=== PATIENT | female | born 1975 | race American Indian/Alaskan Native ===

== ENCOUNTER 2018-08-17 12:45 | Outpatient (CLI) | payer BC ==
--- NOTE | 2018-08-17 15:51 | Mammography Report ---
DIGITAL SCREENING MAMMOGRAM WITH CAD, 08/17/2018 INDICATION: Routine screening mammography. TECHNIQUE: Digital bilateral 2D mammography was obtained in the craniocaudal and mediolateral obliq ue projections. This examination was interpreted with the benefit of Computer-Aided Detection analysi s. COMPARISON: None. This is a baseline mammogram. FINDINGS: Breast Density: Heterogeneously dense, which may obscure small masses. Left asymmetries require addit ional imaging. No suspicious calcifications or architectural distortion in either breast. The right breast is negati ve. IMPRESSION: Left asymmetries requiring additional imaging. Recommend recall for left spot compression views and left breast ultrasound if needed. BI-RADS Category 0: Incomplete. Needs additional imaging . Signer Name: Umer Muonz MD Signed: 08/17/2018 4:46 PM Workstation Name: [id number]
== END 2018-08-17 12:46 | disposition home or self-care (01) ==
LOC: SPVWC 12:45
PROVIDERS: ATTEND Obstetrics & Gynecology
DX: Z12.31 Encounter for screening mammogram for malignant neoplasm of breast (principal)
CPT/HCPCS: 77067

== ENCOUNTER 2018-12-29 09:07 | Inpatient (IN) | payer BC ==
--- NOTE | 2018-12-25 11:28 | Anesthesia Consultation ---
Anesthesia Consult and Med Hx Date of service: 12/29/18 - Airway Anesthetic Teeth Evaluation: Good ROM Head & Neck: Adequate Mental/Hyoid Distance: Adequate Mallampati Class: Class II Intubation Access Assessment: Good - Pre-Operative Health Status ASA Pre-Surgery Classification: ASA2 Proposed Anesthetic Plan: General Nerve Block: TAP if needed post-op - Central Nervous System Hx Psychiatric Problems: No - Other Systems Hx Alcohol Use: Yes (Occas) Hx Cancer: No
[2018-12-25 11:56] LABS: Hematocrit 24.8 % (30.3-42.9); Hemoglobin 7.4 gm/dl (10.1-14.3); Mean Corpuscular Volume 60 fl (79-97); Red Blood Count 4.15 M/mm3 (3.65-5.03)
[2018-12-25 11:57] LABS: Mean Corpuscular HGB Conc 30 % (30-34); Platelet Count 286 K/mm3 (140-440); Red Cell Distribution Width 19.2 % (13.2-15.2)
[2018-12-25 13:40] LABS: Anisocytosis 1+; Basophils % (Manual) 0 % (0.0-1.8); Total Cells Counted 100
[2018-12-25 13:41] LABS: Hypochromasia 3+; Ovalocytes Few; Platelet Estimate Consistent w Auto; Target Cells Few
--- NOTE | 2018-12-29 08:02 | History and Physical Report ---
History of Present Illness Date of examination: 12/25/18 Date of admission: 12/29/18 Chief complaint: heavy vaginal bleeding; fibroids History of present illness: Visit Type: Pre-Op Referring Provider: CARLEE Primary Provider: Hanna Larson MD CC: pre op. History of Present Illness: pt presents for pre op visit: LAVH w/ bilateral salpingectomy............ .........................................................Dahlia Godinez December 25, 2018 10:10 AM Pt here for pre op for LAVH possible MARU with BS. All risk/benefits/alternatives were d/w pt and questions were addressed and answered. Pt having surgery due to menorrhagia leading to anemia for large uterine fibroids. Vital Signs: Patient Profile: 43 Years Old Female LMP: 12/07/2018 Height: 69.5 inches (176.53 cm) Weight: 232 pounds BMI: 33.77 BP sittin / 74 (left arm) Menstrual History: LMP (date): 12/07/2018 Current Method of Contraception: OCP Date of Last Mammogram: 08/17/2018 Date of Last Pap Smear: 01/07/2018 Past History : 0 Term Births: 0 Premature Births: 0 Living Children: 0 Para: 0 Mult. Births: 0 Prev : 0 Prev. attempt? none Aborta: 0 Elect. Ab: 0 Spont. Ab: 0 Ectopics: 0 BOX SPINNER History Uterine Surgery (not C/S): negative Operations: Lumpectomy Hospitalizations: negative Anesthesia Complications: negative Abnormal PAP: positive; s/p LEEP Uterine Anomaly: negative NATHALIA Exposure: negative Infertility: negative Infection History HIV Risk Eval: no Personal hx. of genital herpes: no Partner hx. of genital herpes: no Hx of STD: HPV Active Medications (reviewed today): MULTI VITAMINS () NORTREL 0.5/35 (28) 0.5-35 MG-MCG ORAL TABLET (NORETHINDRONE-ETH ESTRADIOL) one po q day Current Allergies (reviewed today): No known allergies Past Medical History: Reviewed history from 04/06/2010 and no changes required: Negative Past Medical History Past Surgical History: Reviewed history from 06/20/2011 and no changes required: Lumpectomy Family History Summary: Reviewed history Last on 12/10/2016 and no changes required:12/29/2018 General Comments - FH: Family History Breast Cancer Family History of Hypertension Family History of Diabetes Family History of Colon Cancer Sickle Cell Dz Social History: 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-may be adopting sister's children no e/t/d Risk Factors: Smoked Tobacco Use: Never smoker Smokeless Tobacco Use: Never Drug use: no HIV high-risk behavior: no Alcohol use: yes Type: occ Exercise: yes Times per week: occ Seatbelt use: 100 % Mammogram History: Date of Last Mammogram: 08/17/2018 PAP Smear History: Date of Last PAP Smear: 01/07/2018 [[facility] [Labs In-House] Physical Exam Appearance: well developed, well nourished, no acute distress Other Exams Lungs: no rales, rhonchi, or wheezes Heart: S1, S2, no murmur, rub, or gallop Abdomen: soft, non-tender, no masses, bowel sounds normal Extremities: normal alignment, no joint enlargement, crepitus, masses or tenderness; normal tone and strength Genitourinary Exam Comments: deferred until EUA [[facility]] Medications Added to Medication List This Visit: 1) Multi Vitamins Past History Past Medical History: other (anemia) Past Surgical History: no surgical history BOX SPINNER History: denies: abnormal PAP smear Family/Genetic History: other (see hpi) Social history: no significant social history, single Medications and Allergies Allergies Allergy/AdvReac Type Severity Reaction Status Date / Time No Known Allergies Allergy Unverified 12/24/18 16:02 Home Medications Medication Instructions Recorded Confirmed Last Taken Type Multivitamin [Multiple Vitamins] 1 each PO DAILY 12/24/18 12/24/18 Unknown History Norethindrone-Ethinyl Estrad 1 tab PO DAILY 12/24/18 12/24/18 12/22/18 History [Nortrel 0.5-35-28 Tablet] Active Meds: Active Medications Cefazolin Sodium (Ancef/Sterile Water 2 Gm/20 Ml) 2 gm in 20 mls @ 80 mls/hr IV PREOP NR; Protocol Stop: 12/29/18 23:59 Sodium Chloride (Nacl 0.9% 500 Ml) 500 mls @ 0 mls/hr IV ONCE NR Stop: 12/29/18 23:59 Review of Systems All systems: negative - Vital Signs Vital signs: Vital Signs Temp Pulse Resp BP Pulse Ox 98.9 F 78 18 144/80 100 12/25/18 10:55 12/25/18 10:55 12/25/18 10:55 12/25/18 10:55 12/25/18 10:55 Temp Pulse Resp BP Pulse Ox 98.9 F 78 18 144/80 100 12/25/18 10:55 12/25/18 10:55 12/25/18 10:55 12/25/18 10:55 12/25/18 10:55 - Physical Exam Cardiovascular: Normal S1, Normal S2 Lungs: Positive: Clear to auscultation, Normal air movement Abdomen: Positive: normal appearance, soft. Negative: distention, tenderness, guarding Genitourinary (Female): Positive: other (deferred unitl EUA) Extremities: Positive: normal. Negative: tenderness, edema Results Result Diagrams: 12/25/18 10:51 All other labs normal. Assessment and Plan - Patient Problems (1) Fibroid uterus Status: Acute Qualifiers: Uterine leiomyoma location: intramural Qualified Code(s): D25.1 - Intramural leiomyoma of uterus Plan to address problem: -pt desires definitive therapy with total hysterectomy. I d/w that LAVH would be planned but due to size of uterus or fibroids, a MARU would need to be performed. All risk, benefits, and alternatives were d/w pt. Consents were signed and given to pt to present to pre op. -d/w benefits of BS and she desires to have this at time of hysterectomy as well. (2) Menorrhagia with regular cycle Status: Acute Plan to address problem: -pt desires definitive therapy with total hysterectomy. I d/w that LAVH would be planned but due to size of uterus or fibroids, a MARU would need to be performed. All risk, benefits, and alternatives were d/w pt. Consents were signed and given to pt to present to pre op. -d/w benefits of BS and she desires to have this at time of hysterectomy as well. (3) Anemia Status: Acute Qualifiers: Anemia type: iron deficiency Iron deficiency anemia type: chronic blood loss Qualified Code(s): D50.0 - Iron deficiency anemia secondary to blood loss (chronic) Plan to address problem: -pt desires definitive therapy with total hysterectomy. I d/w that LAVH would be planned but due to size of uterus or fibroids, a MARU would need to be performed. All risk, benefits, and alternatives were d/w pt. Consents were signed and given to pt to present to pre op. -d/w benefits of BS and she desires to have this at time of hysterectomy as well. -two units of blood to be given prior to/during surgery. Will closely follow post op. Cell saver also ordered.
[~2018-12-29 09:07] MED LIST: BUPIVACAINE/PF (0.5%) 5 MG/1 ML 30 ML VIAL INFILTRATI ONE; SODIUM CHLORIDE 0.9% 100 ML ONE; SODIUM CHLORIDE 0.9% 500 ML 500 ML IV NR; VASOPRESSIN 20 UNIT/1 ML INJ ONE; ceFAZolin/Water 2 GM/20 ML 2 GM/20 ML SYRINGE IV NR
[2018-12-29] MEDS ORDERED: HYDROmorphone 1 MG/1 ML INJ IV PRN (09:09)
--- NOTE | 2018-12-29 09:10 | Anesthesia Day of Surgery ---
Anesthesia Day of Surgery - Day of Surgery Patient Examined: Yes Patient H&P Reviewed: Yes Patient is NPO: Yes
[2018-12-29] MEDS ORDERED: BACTERIOSTATIC SODIUM CHLORIDE 0.9% 30 ML VIAL INFILTRATI ONE (09:26)
[2018-12-29] MEDS: LACTATED RINGERS 1,000 ML IV SCH ×2 (09:30→16:54)
[2018-12-29] MEDS ORDERED: GABAPENTIN 300 MG CAP PO NR (10:00)
[2018-12-29] MEDS ORDERED: MIDAZOLAM 2 MG/2 ML INJ IV NR (10:00)
[2018-12-29] MEDS ORDERED: CELECOXIB 200 MG CAP PO NR (10:00)
[2018-12-29] MEDS ORDERED: ROCURONIUM 50 MG/5 ML INJ IV ONE (10:26)
[2018-12-29] MEDS ORDERED: LIDOCAINE MPF (2%) 20 MG/1 ML VIAL 5 ML ONE (10:26)
[2018-12-29] MEDS ORDERED: MIDAZOLAM 2 MG/2 ML INJ ONE (10:26)
[2018-12-29] MEDS ORDERED: fentaNYL 100 MCG/2 ML INJ ONE (10:26)
[2018-12-29] MEDS ORDERED: PROPOFOL 200 MG/20 ML VIAL IV ONE (10:27)
[2018-12-29] MEDS ORDERED: ONDANSETRON 4 MG/2 ML INJ ONE (13:11)
[2018-12-29] MEDS ORDERED: METOCLOPRAMIDE 10 MG/2 ML INJ ONE (13:11)
[2018-12-29] MEDS ORDERED: HYDROmorphone 1 MG/1 ML INJ ONE (13:11)
[2018-12-29] MEDS ORDERED: dexAMETHasone 20 MG/5 ML VIAL ONE (13:11)
[2018-12-29] MEDS ORDERED: dexAMETHasone 4 MG/ML VIAL ONE (14:34)
[2018-12-29] MEDS ORDERED: LIDOCAINE (1%) 10 MG/1 ML VIAL 20 ML MDV ONE (14:34)
[2018-12-29] MEDS ORDERED: cloNIDine/PF 1,000 MCG/10 ML VIAL EP ONE (14:34)
[2018-12-29] MEDS ORDERED: BUPIVACAINE-EPINEPHRINE/PF 0.25%-1:200,000 (30 ML) VIAL INFILTRATI ONE (14:34)
[2018-12-29] MEDS ORDERED: BUPIVACAINE/PF (0.5%) 5 MG/1 ML 30 ML VIAL INFILTRATI ONE (14:40)
[2018-12-29] MEDS ORDERED: GLYCOPYRROLATE 0.4 MG/2 ML INJ ONE (14:41)
[2018-12-29] MEDS ORDERED: NEOSTIGMINE 10MG/10 ML INJ MDV ONE (14:41)
[2018-12-29] MEDS ORDERED: KETOROLAC 30 MG/1 ML INJ ONE (14:41)
[2018-12-29] MEDS ORDERED: LACTATED RINGERS 1,000 ML ONE (15:02)
--- NOTE | 2018-12-29 15:12 | Operative Report ---
Operative Report Operative Report: Date of procedure: 12/29/2018 Pre-operative diagnosis: Leiomyomatous uterus Anemia Failed medical therapy Post-operative diagnosis: Same Procedure name(s): 1. Exploratory laparotomy 2. Total abdominal hysterectomy 3. Diagnostic laparoscopy 4. Bilateral salpingectomy Surgeon: Hanna Larson M.D. Media Relations Specialist: Dr. Sonia Trevino Anesthesia: Gen. endotracheal anesthesia EBL: 100 mL Urine output: 150 mL of clear urine out at the end of the procedure Fluids: 1.5 L Findings: Approximately 14 week size uterus multiple fibroids noted Grossly normal fallopian tubes and ovaries bilaterally Very little descent of uterus on vaginal exam Indications: Patient with long history of uterine fibroids and menometrorrhagia subsequently leading to anemia desired to have definitive therapy via hysterectomy. All risks benefits and alternatives were discussed the patient. Consents were signed and placed on chart. Risk and benefits of removal of fallopian tubes were also discussed with the patient. Patient desired removal of fallopian tubes as well. Procedure: Patient was taken to the operating room wishes placed under general endotracheal anesthesia. She was then prepped and draped in normal sterile fashion in dorsal lithotomy position with legs in Silivano stirrups. Sterile spe culum was placed inside of the vagina. Anterior lip of the cervix was grasped with grasper. Uterus was sounded. Uterine manipulator was placed. Attention fascia Tinsley catheter was placed at this time. Attention was then turned to the umbilicus in which a supraumbilical 5 mm incision was made. The scope was placed under direct visualization. Uterus was noted to be extremely large. Decision was made at that time to proceed with total abdominal hysterectomy. A low transverse skin incision was made and carried down to the underlying layer of fascia with both the scalpel and the Bovie. Incision was made with the scalpel and carried down to the underlying layer of fascia with the scalpel and the Bovie. The fascia was incised in the midline and this incision was extended superiorly and inferiorly. The peritoneum was entered into sharply and this incision was extended superiorly and inferiorly. The O'Constantine-O'Otero retractor was then placed. The bowel was packed away with moist wet laps. The uterus was exteriorized. Exploratory laparotomy was performed with the above- stated findings. The attention was turned to the round ligaments bilaterally. Attention was turned to the right fallopian tube which was cauterized and transected and removed and passed off to pathology. The round ligaments were grasped with the Kimberly clamps transected and suture ligated with excellent hemostasis noted. The anterior leaf of the broad ligament was opened and the bladder flap was created. The bladder was dissected off of the lower uterine segment and the cervix. Attention was turned to the tubo-ovarian ligament which was clamped with Rina clamps 2 transected and suture ligated with excellent hemostasis noted. Attention was turned to the uterine arteries bilaterally which a similar fashion were grasped with Rina clamps transected and suture ligated with excellent hemostasis noted. The cardinal uterosacral ligaments and likewise fashion for grasped with Rina clamps transected and suture ligated with excellent hemostasis noted. The Zeppelin clamps were then placed below the level of the cervix with care of and taken that the bladder had been dissected off of the lower uterine segment of the uterus. The uterus and cervix were then amputated from the vagina. The vaginal cuff angles were secured with Robert stitches using 0 Vicryl bilaterally. The remainder of the vaginal cuff was closed using a series of [id number] sutures using 0 Vicryl. Attention was then turned to the left fallopian tube that was cauterized and transected and removed from the abdomen. Excellent hemostasis was noted. The pelvis was then irrigated. Excellent hemostasis was noted. Yuri was placed along the incision line of the vaginal cuff. All instruments and laps were removed from the abdomen. All lap counts were correct at this point. The fascia was then closed using 0 Vicryl in a running fashion. The subcuticular fat was reapproximated with 2-0 Vicryl in both interrupted sutures and running fashion. The skin was then closed in a subcuticular stitch using 4-0 Vicryl. Surgical glue was placed over the transverse skin incision as well as the superior umbi lical incision The patient tolerated the procedure well. Sponge lap and needle counts were all correct 3. Patient received 2 g of Ancef prior to the onset of the procedure. Patient was taken to the recovery room awake and in stable condition.
[2018-12-29] MEDS: KETOROLAC 30 MG/1 ML INJ IV SCH ×2 (16:54→22:41)
[2018-12-29] MEDS: ceFAZolin/NS 1 GM/50 ML 1 GM/50 ML BAG IV SCH (17:16)
--- NOTE | 2018-12-29 19:59 | Post Anesthesia Evaluation ---
- Post Anesthesia Evaluation Patient Participated: Yes Airway Patent: Yes Stable Respiratory Function: Yes Nausea/Vomiting: No Temp > 96.8F: Yes Pain Manageable: Yes Adequeate Hydration: Yes Anesthesia Complications: No Block Receding Appropriately: Not Applicable Patient on Ventilator: No
[2018-12-30] MEDS: LACTATED RINGERS 1,000 ML IV SCH (01:10)
[2018-12-30] MEDS ORDERED: HYDROcodone/ACETAMINOPHEN 5-325 MG TAB PO PRN (02:00)
[2018-12-30] MEDS: ceFAZolin/NS 1 GM/50 ML 1 GM/50 ML BAG IV SCH (02:32)
[2018-12-30] MEDS: MORPHINE 4 MG/1 ML INJ IV PRN ×2 (02:38→20:52)
[2018-12-30 07:29] LABS: Hemoglobin 8.6 gm/dl (10.1-14.3)
--- NOTE | 2018-12-30 08:15 | Progress Note ---
Assessment and Plan - Patient Problems (1) Fibroid uterus Current Visit: No Status: Acute Qualifiers: Uterine leiomyoma location: intramural Qualified Code(s): D25.1 - Intramural leiomyoma of uterus (2) Menorrhagia with regular cycle Current Visit: No Status: Acute (3) Anemia Current Visit: No Status: Acute Qualifiers: Anemia type: iron deficiency Iron deficiency anemia type: chronic blood loss Qualified Code(s): D50.0 - Iron deficiency anemia secondary to blood loss (chronic) Plan to address problem: -h/h is stable this am. Pt is w/o sx at this time -will replace with po iron at this time -no s/sx of anemia this am. (4) S/P MARU (total abdominal hysterectomy) Current Visit: Yes Status: Acute Plan to address problem: -routine post op care -ADAT -closely monitor UOP as it was not charted up to removal of cath this am Subjective - Subjective Date of service: 12/30/18 Principal diagnosis: POD #1 s/p MARU with BS Interval history: Pt doing well this am. Pt s/p flattus and ambulation. Pain is well controlled. Pt UOP was not documented since 2200pm so will place hat in toilet and monitor closely a this time.She has not spontaneously voided since removal at this time. Surgery findings were d/w pt and pictures given to pt. Post op expectations were d/w pt and her mother and all questions were addressed and answered. Patient reports: appetite normal, pain well controlled, flatus, ambulating normally, no dizzy ambulation, no bowel movement, no nauseated Objective - Vital Signs Latest vital signs: Vital Signs Temp Pulse Resp BP BP Pulse Ox 12/30/18 05:02 98.5 F 70 20 119/73 97 12/29/18 23:42 97.9 F 68 18 135/84 96 12/29/18 20:02 97.9 F 71 18 121/84 97 12/29/18 16:14 98.1 F 77 20 107/58 96 12/29/18 16:00 97.8 F 69 15 113/66 97 12/29/18 15:45 71 12 114/64 100 12/29/18 15:30 76 13 144/63 100 12/29/18 15:25 84 14 133/68 100 12/29/18 15:20 90 14 140/74 100 12/29/18 15:16 97.7 F 92 H 13 135/75 100 12/29/18 12:23 97.5 F L 81 16 132/72 12/29/18 12:08 97.5 F L 81 16 122/75 100 12/29/18 12:03 97.5 F L 83 18 129/79 100 12/29/18 11:45 97.5 F L 82 18 127/74 100 12/29/18 11:30 97.6 F 79 16 127/75 100 12/29/18 11:15 97.6 F 84 16 116/68 100 12/29/18 11:00 97.6 F 82 16 105/66 98 12/29/18 09:50 97.6 F 94 H 16 117/66 100 12/29/18 09:30 16 12/29/18 09:15 97.6 F 94 H 16 117/66 100 Intake and Output 12/29/18 12/30/18 12/30/18 22:59 06:59 14:59 Intake Total 1290 826.667 Output Total 650 Balance 640 826.667 Intake: IV 1290 826.667 ANCEF/NS 1 GM/50 ML 1 gm 50 In 50 ml @ 100 mls/hr IV Q8H TEQUILA Rx#:[id number] Lactated Ringers 1,000 ml 740 826.667 @ 100 mls/hr IV DIRECT TEQUILA Rx#:[id number] Output: Urine 650 Indwelling Catheter 450 Uretheral (Tinsley) 100 Other: Total, Output Amount 350 Voiding Method Indwelling Catheter # Voids Indwelling Catheter 1 - Exam Cardiovascular: Present: Normal S1, Normal S2 Lungs: Present: Clear to auscultation, Normal air movement Abdomen: Present: normal appearance, normal bowel sounds. Absent: distention, tenderness Incision: Present: normal, dry, intact (open to air abdominal binder in place) - Labs Labs: Abnormal lab results 12/29/18 12/29/18 12/30/18 Range/Units 09:25 09:46 06:04 Hgb 8.6 L (10.1-14.3) gm/dl Hct 28.0 L (30.3-42.9) % POC Glucose 111 H (70-105) Crossmatch See Detail
[2018-12-30] MEDS: KETOROLAC 30 MG/1 ML INJ IV SCH ×2 (09:07→15:05)
[2018-12-31] MEDS: ONDANSETRON 4 MG/2 ML INJ IV PRN ×2 (02:28→09:28)
[2018-12-31] MEDS: KETOROLAC 30 MG/1 ML INJ IV SCH ×2 (02:41→09:26)
--- NOTE | 2018-12-31 08:04 | Progress Note ---
Assessment and Plan - Patient Problems (1) Fibroid uterus Current Visit: No Status: Acute Qualifiers: Uterine leiomyoma location: intramural Qualified Code(s): D25.1 - Intramural leiomyoma of uterus (2) Menorrhagia with regular cycle Current Visit: No Status: Acute (3) Anemia Current Visit: No Status: Acute Qualifiers: Anemia type: iron deficiency Iron deficiency anemia type: chronic blood loss Qualified Code(s): D50.0 - Iron deficiency anemia secondary to blood loss (chronic) Plan to address problem: -h/h is stable this am. Pt is w/o sx at this time -will replace with po iron at this time -no s/sx of anemia this am. (4) S/P MARU (total abdominal hysterectomy) Current Visit: Yes Status: Acute Plan to address problem: -routine post op care -monitor to continued toleration of diet -d/c home if remains stable. Subjective - Subjective Date of service: 12/31/18 Principal diagnosis: POD #2 s/p MARU with BS Interval history: Pt states she is doing well. She tolerated regular diet last yesterday but had emeesis after dinner due to having some reflux. State she had two episode of emesis this am. States she is feeling well at this time and wants to go home. I advised that we will monitor her this am and if she tolerates her diet this am she will be d/c home this pm. Pt agrees with plan of care and questions were addressed and answered. Patient reports: appetite normal, voiding normally, pain well controlled, flatus, ambulating normally, no dizzy ambulation, no bowel movement, no nauseated Objective - Vital Signs Latest vital signs: Vital Signs Temp Pulse Resp BP BP Pulse Ox 12/31/18 01:09 98.0 F 79 18 128/78 97 12/30/18 20:20 98.6 F 90 20 101/59 97 12/30/18 17:15 97.7 F 75 18 114/75 12/30/18 12:22 98.2 F 81 18 90/56 12/30/18 08:07 98.0 F 63 18 110/65 Intake and Output 12/30/18 12/31/18 12/31/18 22:59 06:59 14:59 Intake Total 480 480 Output Total 400 Balance 80 480 Intake: Oral 480 Intake, Free Water 480 Output: Urine 400 Void 400 Other: Total, Intake Amount 480 Total, Output Amount 400 # Voids Void 1 2 - Exam Cardiovascular: Present: Normal S1, Normal S2 Lungs: Present: Clear to auscultation, Normal air movement Abdomen: Present: normal appearance, soft. Absent: distention, tenderness, guarding Extremities: Present: normal. Absent: tenderness, edema Incision: Present: normal, dry, intact (open to air)
--- NOTE | 2018-12-31 08:17 | Discharge Summary ---
Providers - Providers Date of Admission: 12/29/18 14:53 Date of discharge: 12/31/18 Attending physician: EDUARDO BOLDEN Primary care physician: VIVIAN DENG MD Hospitalization Reason for admission: other (hysterectomy) Procedure details: MARU with BS Incision: normal, dry, intact Hospital course: Pt admitted for hystrectomy. Pt had MARU with BS. Post op course and pre op course was complicated by anemia for which she got blood pre op. H/H has remained stable at this time. Pt will be d/c home today if she remains stable and tolerates regular diet. Condition at discharge: Good Disposition: DC-01 TO HOME OR SELFCARE - Discharge Diagnoses (1) Fibroid uterus Status: Acute Qualifiers: Uterine leiomyoma location: intramural Qualified Code(s): D25.1 - Intramu ral leiomyoma of uterus (2) Menorrhagia with regular cycle Status: Acute (3) Anemia Status: Acute Qualifiers: Anemia type: iron deficiency Iron deficiency anemia type: chronic blood loss Qualified Code(s): D50.0 - Iron deficiency anemia secondary to blood loss (chronic) (4) S/P MARU (total abdominal hysterectomy) Status: Acute Plan - Discharge Medications Prescriptions: Docusate Sodium [Colace] 100 mg PO BID PRN #60 capsule PRN Reason: Constipation Ferrous Sulfate [Feosol 325 MG tab] 325 mg PO QDAY #60 tablet Ibuprofen [Motrin 800 MG tab] 800 mg PO Q8HR PRN #30 tablet PRN Reason: Pain, Moderate (4-6) oxyCODONE /ACETAMINOPHEN [Percocet 5/325] 1 tab PO Q4HR #30 tab - Provider Discharge Summary Activity: routine, no sex for 6 weeks, no heavy lifting 4 weeks, no strenuous exercise Diet: routine Instructions: routine Additional instructions: [] Smoking cessation referral if applicable(refer to patient education folder for contact #) [] Refer to [facility] Booklet Call your doctor immediately for: * Fever > 100.5 * Heavy vaginal bleeding ( >1 pad per hour) * Severe persistent headache * Shortness of breath * Reddened, hot, painful area to leg or breast * Drainage or odor from incision. * Keep incision clean and dry at all times and follow doctor's instructions regarding bathing/showering - Follow up plan Follow up: PRIMARY CARE, [Primary Care Provider] - 7 Days
[2018-12-31 13:21] VITALS: BP 125/76
== END 2018-12-31 11:50 | disposition home or self-care (01) | DRG 743 ==
LOC: OR 09:07 → OB 14:53
PROVIDERS: ADMIT Obstetrics & Gynecology; ATTEND Obstetrics & Gynecology
PROC: 0UJD4ZZ Inspection of Uterus and Cervix, Percutaneous Endoscopic Approach (ICD-10-PCS; principal; 2018-12-29)
PROC: 0UT90ZZ Resection of Uterus, Open Approach (ICD-10-PCS; 2018-12-29)
PROC: 0UT70ZZ Resection of Bilateral Fallopian Tubes, Open Approach (ICD-10-PCS; 2018-12-29)
PROC: 0UJ84ZZ Inspection of Fallopian Tube, Percutaneous Endoscopic Approach (ICD-10-PCS; 2018-12-29)
PROC: 30233N1 Transfusion of Nonautologous Red Blood Cells into Peripheral Vein, Percutaneous Approach (ICD-10-PCS; 2018-12-29)
DX: D25.1 Intramural leiomyoma of uterus (principal); N92.0 Excessive and frequent menstruation with regular cycle; D50.0 Iron deficiency anemia secondary to blood loss (chronic); Z72.89 Other problems related to lifestyle; Z80.3 Family history of malignant neoplasm of breast; Z80.8 Family history of malignant neoplasm of other organs or systems; Z83.3 Family history of diabetes mellitus; Z82.49 Family history of ischemic heart disease and other diseases of the circulatory system; Z79.899 Other long term (current) drug therapy
CPT/HCPCS: 36415; 82962; 84703; 85007; 85014; 85018; 85025; 86850; 86900; 86901; 86920; 88302; 88307; G0378; C1765; J0690; J0735; J1100; J1170; J1885; J2250; J2270; J2405; J2704; J2710; J2765; J3010; J7040; J7120; P9016